=== PATIENT | female | born 1995 | race Two or more races ===

== ENCOUNTER 2023-05-04 10:08 | Outpatient (OUT) | payer OTHER, SELFPAY ==
--- NOTE | 2023-05-04 10:13 | US_ITS ---
The [address] [address] Patient Name: VJ OCONNOR MRN: [id number] date: 1995 Sex: F Assigned Patient Location: Current Patient Location: US Accession/Order Number: [id number] Exam Date: 05/04/2023 10:20 Report Date: 05/04/2023 11:19 At the request of: DIPAK JEAN Procedure: US pelvis w/ transvaginal Ultrasound pelvis, non-obstetric CLINICAL: spontaneous O03.9 TECHNIQUE: Transabdominal and transvaginal pelvic ultrasound was performed. FINDINGS: Comparison: None. The uterus is anteverted in position. It measures 7.4 x 5.3 x 4.3 cm. There is no discrete myometrial mass. The endometrial complex measures 11 mm in thickness and is mildly heterogeneous. No intrauterine is visualized. There is no increased vascularity of the endometrium or fluid within the endometrium. Tiny cervical cyst is seen. The right ovary measures 2.2 x 1.9 x 2.2 cm. The left ovary measures 1.7 x 1.4 x 1.5 cm. There is normal vascular flow to both ovaries with resistive index of 0.6 on right and 0.6 on left. Small physiologic sized follicles are identified in both ovaries. There is no free pelvic fluid or mass seen on either side. US/US pelvis w/ transvaginal IMPRESSION: 1. No intrauterine visualized. Endometrium measures 11 mm in thickness and is heterogeneous but no findings suggesting retained products of conception. 2. Normal ovaries bilaterally. Electronically authenticated by: YANN PEREZ Date: 05/04/2023 11:19
== END 2023-05-04 10:09 | disposition home or self-care (01) ==
LOC: US 10:08
PROVIDERS: PCP Nurse Practitioner Family; Visit Provider Nurse Practitioner Family
DX: O03.9 Complete or unspecified spontaneous abortion without complication (principal)
CPT/HCPCS: 76830; 76856

== ENCOUNTER 2023-12-15 13:01 | Outpatient (OUT) | payer OTHER, SELFPAY ==
--- NOTE | 2023-12-15 13:03 | US_ITS ---
The [address] [address] Patient Name: VJ OCONNOR MRN: [id number] date: 1995 Sex: F Assigned Patient Location: Current Patient Location: Accession/Order Number: [id number] Exam Date: 12/15/2023 13:05 Report Date: 12/16/2023 06:20 At the request of: MOISES RIBERA Procedure: US right upper quadrant EXAMINATION: US right upper quadrant HISTORY: Epigastric Pain , Right Upper Quadrant Pain COMPARISON: No relevant comparison available. TECHNIQUE: Transabdominal evaluation of the right upper quadrant. FINDINGS: LIVER: Normal size and echotexture. Color Doppler demonstrates patent hepatic veins. PORTAL VEIN: Duplex Doppler demonstrates normal hepatopetal flow pattern with flow velocity averaging 25 cm/s. GALLBLADDER: Wall thickness is upper limits of normal, 3 mm. Contains a 1.9 cm stone. No free fluid or abnormal duct dilation. BILIARY: No abnormal dilation or stones. Common bile duct diameter is within normal limits. PANCREAS: No visible mass, abnormal atrophy, or duct dilation. KIDNEY: No hydronephrosis. No visible mass or stones. Size: 9.9 x 5.5 x 5.3 cm US/US right upper quadrant IMPRESSION: 1. Cholelithiasis. Gallbladder wall thickness is upper limits of normal, but no convincing acute cholecystitis. Electronically authenticated by: ISIDRO DELUCA Date: 12/16/2023 06:20
== END 2023-12-15 13:02 | disposition home or self-care (01) ==
LOC: US 13:01
PROVIDERS: PCP Nurse Practitioner Family; Visit Provider Nurse Practitioner
DX: R10.13 Epigastric pain (principal); R10.11 Right upper quadrant pain; K80.20 Calculus of gallbladder without cholecystitis without obstruction
CPT/HCPCS: 76705